=== PATIENT | female | born 1965 | race Caucasian/White ===

== ENCOUNTER 2019-08-29 21:52 | Emergency (ER) | payer OTHER ==
[2019-08-29 22:21] LABS: Absolute Lymphocytes (CBC) 1.9 K/uL (0.7-4.9); Basophils % 0.6 % (0-1.3); Hematocrit 36.7 % (36.0-45.0); Lymphocytes % 27.4 % (15.3-44.8); MPV 9.7 fL (7.6-11.3); RBC Red Blood Cell Count 4.11 M/uL (3.86-4.86)
[2019-08-29 22:29] LABS: Barbiturates NEGATIVE (NEGATIVE); Benzodiazepines NEGATIVE (NEGATIVE); Cocaine NEGATIVE (NEGATIVE); METHAMPHETAM NEGATIVE (NEGATIVE); Methadone NEGATIVE (NEGATIVE); Opiates NEGATIVE (NEGATIVE); Phencyclidine NEGATIVE (NEGATIVE); THC Cannibis NEGATIVE (NEGATIVE)
[2019-08-29 22:40] LABS: Urine Blood NEGATIVE (NEG); Urine Glucose NEGATIVE (NEG); Urine Protein NEGATIVE (NEG)
[2019-08-29 22:41] LABS: Protime INR 0.96
[2019-08-29 22:50] LABS: ALT/SGPT 17 U/L (12-78); AST/SGOT 13 U/L (15-37); Albumin 3.7 g/dL (3.4-5.0); Alkaline Phosphatase 68 U/L (45-117); BUN Blood Urea Nitrogen 20 mg/dL (7-18); Bicarbonate 24 mmol/L (21-32); Bilirubin Direct < 0.1 mg/dL (0-0.2); Bilirubin Total 0.2 mg/dL (0.2-1.0); Glucose Level 92 mg/dL (74-106); Potassium 3.7 mmol/L (3.5-5.1); Sodium Level 143 mmol/L (136-145)
--- NOTE | 2019-08-30 05:24 | EDPHYS ---
Physician Documentation [facility] Name: Kenyatta Varghese Age: 54 yrs Sex: Female : 1965 Arrival Date: 08/29/2019 Time: 21:57 Bed 20 Private MD: ED Physician Sunny Lucia HPI: 08/30 01:07 This 54 yrs old Female presents to ER via EMS with complaints of altered kb mental status. 01:07 The patient presents with agitation, decreased responsiveness. Onset: The kb symptoms/episode began/occurred today. Possible causes: unknown. Associated signs and symptoms: Pertinent positives: combativeness. Current symptoms: In the emergency department the patient's symptoms are unchanged from the initial presentation. Unable to obtain HPI due to altered mental status. It is unknown whether or not the patient has had similar symptoms in the past. It is unknown whether or not the patient has recently seen a physician. EMS reports they were called by [facility] staff because pt was walking around and was incoherent. States they got there and pt was sleeping on the floor. Woke pt up and she became combative. At time of arrival, pt is responsive to painful stimuli. . 05:21 Patient's baseline: Neuro: alert and fully oriented. becky MEDICAL DEVICE SALES REPRESENTATIVE: 08/29 23:51 lmp unknown mg2 Historical: - Allergies: 22:14 Unable to obtain; fc - Home Meds: 22:14 Unable to obtain [Active]; fc - PMHx: 22:14 Unable to obtain; fc - PSHx: 22:14 Unable to obtain; fc - Immunization history:: Last tetanus immunization: unknown. - Social history:: Smoking status: unknown. - Ebola Screening: : Unable to complete screening because patient is disoriented, . - Family history:: not pertinent. ROS: 08/30 01:07 Unable to obtain ROS due to altered mental status. kb 05:21 Constitutional: Negative for fever, chills, and weight loss, Eyes: Negative for injury, becky pain, redness, and discharge, ENT: Negative for injury, pain, and discharge, Neck: Negative for injury, pain, and swelling, Cardiovascular: Negative for chest pain, palpitations, and edema, Respiratory: Negative for shortness of breath, cough, wheezing, and pleuritic chest pain, Abdomen/GI: Negative for abdominal pain, nausea, vomiting, diarrhea, and constipation, Back: Negative for injury and pain, : Negative for injury, bleeding, discharge, and swelling, MS/Extremity: Negative for injury and deformity, Skin: Negative for injury, rash, and discoloration, Psych: Negative for depression, anxiety, suicide ideation, homicidal ideation, and hallucinations, Allergy/Immunology: Negative for hives, rash, and allergies, Endocrine: Negative for neck swelling, polydipsia, polyuria, polyphagia, and marked weight changes, Hematologic/Lymphatic: Negative for swollen nodes, abnormal bleeding, and unusual bruising. 05:21 Neuro: Positive for altered mental status, weakness. Exam: 01:07 Head/Face: Normocephalic, atraumatic. ENT: Nares patent. No nasal discharge, no kb septal abnormalities noted. Tympanic membranes are normal and external auditory canals are clear. Oropharynx with no redness, swelling, or masses, exudates, or evidence of obstruction, uvula midline. Mucous membranes moist. Neck: Trachea midline, no thyromegaly or masses palpated, and no cervical lymphadenopathy. Supple, full range of motion without nuchal rigidity, or vertebral point tenderness. No Meningismus. Chest/axilla: Normal chest wall appearance and motion. Nontender with no deformity. No lesions are appreciated. Cardiovascular: Regular rate and rhythm with a normal S1 and S2. No gallops, murmurs, or rubs. Normal PMI, no JVD. No pulse deficits. Respiratory: Lungs have equal breath sounds bilaterally, clear to auscultation and percussion. No rales, rhonchi or wheezes noted. No increased work of breathing, no retractions or nasal flaring. Abdomen/GI: Soft, non-tender, with normal bowel sounds. No distension or tympany. No guarding or rebound. No evidence of tenderness throughout. Skin: Warm, dry with normal turgor. Normal color with no rashes, no lesions, and no evidence of cellulitis. MS/ Extremity: Pulses equal, no cyanosis. Neurovascular intact. Full, normal range of motion. 01:07 Constitutional: The patient appears well developed, well hydrated, well groomed, well nourished. 01:07 Eyes: Periorbital structures: appear normal, Pupils: pinpoint, bilaterally, Conjunctiva: normal. 01:07 Neuro: Orientation: unable to test, Mentation: responsive to pain, Memory: unable to test, Cranial nerves: unable to test, Cerebellar function: unable to test. 05:21 Cardiovascular: Rate: normal, Rhythm: regular, Pulses: no pulse deficits are becky appreciated, Heart sounds: normal, Edema: is not appreciated, JVD: is not appreciated. Vital Signs: 08/29 21:46 BP 92 / 63; Pulse 52; Resp 16; Temp 96.3(O); Pulse Ox 99% on R/A; Weight 58.97 kg (R); fc Height 5 ft. 4 in. (162.56 cm) (R); Pain 0/10; 22:05 BP 106 / 72; Pulse 52; Resp 18; Pulse Ox 100% on R/A; mg2 22:15 BP 102 / 59; Pulse 53; Resp 18; Pulse Ox 100% on R/A; mg2 22:15 BP 169 / 93; Pulse 53; Resp 18; Pulse Ox 100% on R/A; mg2 08/30 00:30 BP 117 / 78; Pulse 51; Resp 18; Pulse Ox 96% on R/A; oe 01:00 BP 123 / 77; Pulse 55; Resp 18; Pulse Ox 99% on R/A; oe 02:00 BP 160 / 85; Pulse 52; Resp 18; Pulse Ox 100% on R/A; oe 03:00 BP 144 / 107; Pulse 73; Resp 18; Pulse Ox 95% on R/A; wh 04:15 BP 99 / 64; Pulse 51; Resp 16; Pulse Ox 99% ; wh 05:00 BP 110 / 65; Pulse 52; Resp 18; Pulse Ox 100% on R/A; wh 08/29 21:46 Body Mass Index 22.31 (58.97 kg, 162.56 cm) fc MDM: 08/29 21:58 Patient medically screened. 08/30 01:07 Data reviewed: vital signs, nurses notes. Data interpreted: Pulse oximetry: on room air kb is 100 %. Interpretation: normal. 01:13 ED course: Pt now responsive to verbal stimuli. Pt become agitated when she is kb awakened, cursing and trying to roll over, covering herself with a blanket. Vitals remain stable. Will continue to monitor. 02:46 ED course: Pt awake and alert. Pt is oriented to place, name and age. States she was at [facility] prior to coming to the ER. States she took drugs, including baclofen. Can tell me her sister's name is Crystal (confirmed with facesheet). Pt does not want to answer other questions when asked. . 03:00 Transition of care: After a detail discussion of the patient's case, care is transferred to Sunny Lucia MD. 08/29 21:59 Order name: Acetaminophen; Complete Time: 22:56 kb 08/29 21:59 Order name: Basic Metabolic Panel; Complete Time: 22:56 kb 08/29 21:59 Order name: CBC with Diff; Complete Time: 22:39 kb 08/29 21:59 Order name: ETOH Level; Complete Time: 22:56 kb 08/29 21:59 Order name: Hepatic Function; Complete Time: 22:56 kb 08/29 21:59 Order name: PT-INR; Complete Time: 22:44 kb 08/29 21:59 Order name: Ptt, Activated; Complete Time: 22:44 kb 08/29 21:59 Order name: Salicylate; Complete Time: 22:44 kb 08/29 21:59 Order name: Urine Drug Screen; Complete Time: 22:32 kb 08/29 21:59 Order name: EKG; Complete Time: 22:02 kb 08/29 21:59 Order name: EKG - Nurse/Tech; Complete Time: 22:11 kb 08/29 21:59 Order name: CT Head Brain wo Cont kb 08/29 22:15 Order name: Urine Dipstick--Ancillary (enter results); Complete Time: 22:44 ar5 08/29 22:15 Order name: Urine --Ancillary (enter results); Complete Time: 22:44 ar5 08/29 21:59 Order name: IV Saline Lock; Complete Time: 22:11 kb 08/29 21:59 Order name: Labs collected and sent; Complete Time: 22:11 kb 08/29 21:59 Order name: Urine Dipstick-Ancillary (obtain specimen); Complete Time: 22:11 kb Administered Medications: No medications were administered Disposition: 05:20 Co-signature as Attending Physician, Sunny Lucia MD I agree with the assessment and becky plan of care. Disposition: 08/30/19 05:23 Discharged to Home. Impression: Altered mental status, unspecified - baclofen overdose. - Condition is Fair. - Discharge Instructions: Back Pain, Adult, Confusion, Back Pain, Adult, [id number], Drug Overdose. - Medication Reconciliation Form, Thank You Letter, Antibiotic Education, Prescription Opioid Use form. - Follow up: Private Physician; When: 2 - 3 days; Reason: Recheck today's complaints, Continuance of care, Re-evaluation by your physician. - Problem is new. - Symptoms have improved. Signatures: Dispatcher [employer] EDMS Jina Bryson, TRAFFIC CIRCUIT ENGINEER-C TRAFFIC CIRCUIT ENGINEER-Sunny Lawrence MD MD cha Chretien, Felicia RN RN Bogdan Malcolm Corrections: (The following items were deleted from the chart) 02:56 02:09 Counseling: I had a detailed discussion with the patient and/or guardian alistair regarding: the historical points, exam findings, and any diagnostic results supporting the discharge/admit diagnosis, lab results, the need for outpatient follow up, a family practitioner, to return to the emergency department if symptoms worsen or persist or if there are any questions or concerns that arise at home, alistair 05:46 05:23 08/30/2019 05:23 Discharged to Home. Impression: Altered mental status, wh unspecified - baclofen overdose. Condition is Fair. Forms are Medication Reconciliation Form, Thank You Letter, Antibiotic Education, Prescription Opioid Use. Follow up: Private Physician; When: 2 - 3 days; Reason: Recheck today's complaints, Continuance of care, Re-evaluation by your physician. Problem is new. Symptoms have improved. becky
--- NOTE | 2019-08-30 05:24 | ER ---
Nurse's Notes [facility] Name: Kenyatta Varghese Age: 54 yrs Sex: Female : 1965 Arrival Date: 08/29/2019 Time: 21:57 Bed 20 Private MD: Diagnosis: Altered mental status, unspecified-baclofen overdose Presentation: 08/29 21:46 Presenting complaint: EMS states: that they were toned to [facility] for pt in dressing room banging her head on the wall. Upon their arrival pt was very combative. When pt was placed on the stretcher she closed eyes and "went to sleep". Transition of care: patient was not received from another setting of care. Onset of symptoms was August 29, 2019 at 21:30. Risk Assessment: Do you want to hurt yourself or someone else? Unable to obtain. Initial Sepsis Screen: Does the patient meet any 2 criteria? No. Patient's initial sepsis screen is negative. Does the patient have a suspected source of infection? No. Patient's initial sepsis screen is negative. Care prior to arrival: Glucose check: 94. 21:46 Method Of Arrival: EMS: [facility] 21:46 Acuity: WES 2 fc MARINE ENGINEERING CONSULTANT: 23:51 lmp unknown mg2 Historical: - Allergies: 22:14 Unable to obtain; fc - Home Meds: 22:14 Unable to obtain [Active]; fc - PMHx: 22:14 Unable to obtain; fc - PSHx: 22:14 Unable to obtain; fc - Immunization history:: Last tetanus immunization: unknown. - Social history:: Smoking status: unknown. - Ebola Screening: : Unable to complete screening because patient is disoriented, . - Family history:: not pertinent. Screenin:16 Abuse screen: Denies threats or abuse. Denies injuries from another. Nutritional mg2 screening: No deficits noted. Tuberculosis screening: No symptoms or risk factors identified. Fall Risk IV access (20 points). Mental Status- Overestimates/Forgets Limitations (15 pts.). Assessment: 22:17 General: Appears in no apparent distress. Behavior is unresponsive. Pain: Unable to use mg2 pain scale. Patient is unresponsive. Neuro: Level of Consciousness is unresponsive. Cardiovascular: Capillary refill < 3 seconds Patient's skin is warm and dry. Respiratory: Airway is patent Respiratory effort is even, unlabored, Respiratory pattern is regular, symmetrical. GI: No signs and/or symptoms were reported involving the gastrointestinal system. : No signs and/or symptoms were reported regarding the genitourinary system. EENT: No signs and/or symptoms were reported regarding the EENT system. Derm: Skin is intact, is healthy with good turgor, Skin is pink, warm \\T\\ dry. normal. Musculoskeletal: Circulation, motion, and sensation intact. Capillary refill < 3 seconds. 22:32 Reassessment: patient woke up right before she was taken to CT scan. she covered mg2 herself with a blanket. 08/30 01:00 Reassessment: Patient appears in no apparent distress at this time. No changes from previously documented assessment. Patient and/or family updated on plan of care and expected duration. Pain level reassessed. Patient is alert, oriented x 3, equal unlabored respirations, skin warm/dry/pink. Pt sleeping well no signs of distress noted. 02:00 Reassessment: Patient appears in no apparent distress at this time. No changes from previously documented assessment. Patient and/or family updated on plan of care and expected duration. Pain level reassessed. Patient is alert, oriented x 3, equal unlabored respirations, skin warm/dry/pink. Pt sleeping well no signs of distress noted. 03:00 Reassessment: Pt woke up screaming and shouting, Provider at bedside assessing Pt. Charge Nurse and Tail Trimmer trying to calm Pt. Grab Setter attempted to contact family. 04:15 Reassessment: Patient appears in no apparent distress at this time. No changes from previously documented assessment. Patient and/or family updated on plan of care and expected duration. Pain level reassessed. Patient is alert, oriented x 3, equal unlabored respirations, skin warm/dry/pink. Pt sleeping no signs of distress noted. 05:17 Reassessment: Dr Lucia at bedside for pt evaluation pt is A\\T\\O x 4, resp unlabored, bb pt states she took some baclofen that she had left over because she was out of the Soma she takes for her back. Dr Lucia instructed her that she should only take her medicine as prescribed and she should consider stopping the Soma due to it's habit forming effects. Pt verbalized understanding of Dr Lucia's instructions. Vital Signs: 08/29 21:46 BP 92 / 63; Pulse 52; Resp 16; Temp 96.3(O); Pulse Ox 99% on R/A; Weight 58.97 kg (R); fc Height 5 ft. 4 in. (162.56 cm) (R); Pain 0/10; 22:05 BP 106 / 72; Pulse 52; Resp 18; Pulse Ox 100% on R/A; mg2 22:15 BP 102 / 59; Pulse 53; Resp 18; Pulse Ox 100% on R/A; mg2 22:15 BP 169 / 93; Pulse 53; Resp 18; Pulse Ox 100% on R/A; mg2 08/30 00:30 BP 117 / 78; Pulse 51; Resp 18; Pulse Ox 96% on R/A; oe 01:00 BP 123 / 77; Pulse 55; Resp 18; Pulse Ox 99% on R/A; oe 02:00 BP 160 / 85; Pulse 52; Resp 18; Pulse Ox 100% on R/A; oe 03:00 BP 144 / 107; Pulse 73; Resp 18; Pulse Ox 95% on R/A; wh 04:15 BP 99 / 64; Pulse 51; Resp 16; Pulse Ox 99% ; wh 05:00 BP 110 / 65; Pulse 52; Resp 18; Pulse Ox 100% on R/A; wh 08/29 21:46 Body Mass Index 22.31 (58.97 kg, 162.56 cm) fc ED Course: 08/29 20:00 EKG done, by ED staff, reviewed by Sunny Lucia MD. fc 21:46 Arm band placed on Patient placed in an exam room, on a stretcher. fc 21:46 Patient has correct armband on for positive identification. Placed in gown. Bed in low fc position. Call light in reach. Side rails up X2. playground monitor on. Pulse ox on. NIBP on. 21:55 Initial lab(s) drawn, by me, sent to lab. Inserted saline lock: 20 gauge in right fc forearm, using aseptic technique. Blood collected. 21:57 Patient arrived in ED. mg2 21:58 Jina Bryson FNP-C is PHCP. kb 21:58 Sunny Lucia MD is Attending Physician. kb 22:00 Randy Garcia RN is Primary Nurse. tr5 22:06 Straight cath inserted, using sterile technique, 14 Fr. Specimen obtained. Returned clear yellow urine. Patient tolerated well. 22:06 Urine collected: straight cath specimen, clear. 22:13 Triage completed. 22:19 No provider procedures requiring assistance completed. mg2 22:44 CT Head Brain wo Cont In Process Unspecified. EDMT 08/30 05:28 IV discontinued, intact, bleeding controlled, No redness/swelling at site. Administered Medications: No medications were administered Outcome: : Discharge ordered by . becky 05:28 Discharged to home ambulatory. 05:28 Condition: stable 05:28 Discharge instructions given to patient, Instructed on discharge instructions, follow up and referral plans. POC Back Pain and Drug Overdose Demonstrated understanding of instructions, follow-up care, POC 05:46 Patient left the ED. Signatures: Dispatcher [employer] EDMS Jina Bryson, MICROARRAY OPERATIONS VICE PRESIDENT-C MICROARRAY OPERATIONS VICE PRESIDENT-Ckb Sunny Lucia MD MD cha Chretien, Felicia RN RN Inez Coppola RN RADHA Mani Valdez Winsy Krystian Gutierrez RN RN [facility] Randy Garcia RN RN tr5 Corrections: (The following items were deleted from the chart) 02:38 00:30 BP 123 / 77; Pulse 55bpm; Resp 18bpm; Pulse Ox 99% RA; oe oe
[2019-08-30 06:07] VITALS: BP 110/65; O2SAT 100
--- NOTE | 2019-08-30 14:21 | EKG ---
Test Date: 2019-08-29 Test Time: 22:00:53 Clean Out Driller: MEASUREMENT RESULTS: Intervals: Rate: 51 OK: 134 QRSD: 82 QT: 492 QTc: 453 [place]: P: 56 OK: 134 QRS: 62 T: 61 INTERPRETIVE STATEMENTS: Sinus bradycardia Otherwise normal ECG No previous ECG available for comparison Electronically Signed On 08-30-19 14:19:19 HEALTH COMMISSIONER by Lázaro Graham
--- NOTE | 2019-09-01 14:25 | RAD REPORT ---
EXAM DESCRIPTION: Head Brain Wo Cont CLINICAL HISTORY: MENTAL STATUS CHANGE TECHNIQUE: Contiguous axial CT images obtained through the brain without IV contrast. Coronal and sa gittal reformatted images were provided. This exam was performed according to our departmental dose-optimization program, which includes autom ated exposure control, adjustment of the mA and/or kV according to patient size and/or use of iterati ve reconstruction technique. COMPARISON: None available for comparison FINDINGS: Brain: No significant white matter changes. No focal mass effect. Servin-white matter differ entiation is within normal limits. No hemorrhage. Ventricles: No ventriculomegaly or midline shift. Extra-axial spaces: No extra-axial collection or hemorrhage. Paranasal sinuses and mastoid air cells: Moderate right frontal and sphenoid and mild left posterior ethmoid sinus mucosal thickening. Vessels: There is atherosclerotic disease of the internal carotid arteries bilaterally. Bones: Remote right medial orbital wall, right orbital floor and bilateral nasal bone fracture deform ities. Soft tissues: Unremarkable IMPRESSION: 1. No acute intracranial or extra-axial abnormality. 2. Other findings as above. Electronically signed by: Tde Membreno MD 08/29/2019 10:57 PM SUPERVISOR BLOOD Due to temporary technical issues with the PACS/Fluency reporting system, reports are being signed by the in house radiologist as a courtesy to ensure prompt reporting. The interpreting radiologist is f ully responsible for the content of the report.
== END 2019-08-30 05:46 | disposition home or self-care (01) ==
LOC: ER 21:52
DX: T42.8X1A Poisoning by antiparkinsonism drugs and other central muscle-tone depressants, accidental (unintentional), initial encounter (principal)
CPT/HCPCS: 36415; 51702; 70450; 80048; 80076; 80307; 80320; 80329; 81003; 81025; 85025; 85610; 85730; 93005; 99285